=== PATIENT | male | born 1955 | race Caucasian/White ===

== ENCOUNTER → 2023-10-18 07:17 | Outpatient (REF) | payer MEDICARE, OTHER, SELFPAY | LOC: RAD 07:17 | PROVIDERS: ATTENDING PHYSICIAN Internal Medicine | DX: J90 Pleural effusion, not elsewhere classified (principal); R07.9 Chest pain, unspecified | CPT/HCPCS: 71250 ==

== ENCOUNTER → 2024-01-04 10:51 | Outpatient (REF) | payer MEDICARE, OTHER, SELFPAY | LOC: RAD 10:51 | PROVIDERS: ATTENDING PHYSICIAN Internal Medicine Critical Care Medicine | DX: J90 Pleural effusion, not elsewhere classified (principal); R91.8 Other nonspecific abnormal finding of lung field | CPT/HCPCS: 71250 ==